=== PATIENT | male | born 1955 ===

== ENCOUNTER 2024-11-04 05:34 | Day surgery (SDC) | payer OTHER ==
[2024-11-02 09:00] LABS: HEMATOCRIT 43.2 % (39.0-48.0); HEMOGLOBIN 14.8 g/dL (13-16.00); MEAN CELL VOLUME 92.2 fL (80.0-100.00); MEAN CORPUSCULAR HEMOGLOBIN 31.5 pg (27.00-32.0); MEAN CORPUSCULAR HGB CONC 34.1 g/dl (32.0-36.0); PLATELET COUNT 276 K/uL (150-450); RED BLOOD COUNT 4.69 M/uL (4.00-6.00); RED CELL DISTRIBUTION WIDTH 13.7 % (11.5-14.5)
[2024-11-02 09:11] VITALS: BP 465/81
[2024-11-02 09:24] LABS: INR 1.09; PARTIAL THROMBOPLASTIN TIME 26.8 SECONDS (22.0-34.0); PROTHROMBIN TIME 11.8 SECONDS (9.0-11.5)
[2024-11-02 09:33] LABS: URINE APPEARANCE Clear; URINE BILIRRUBIN Negative (NEGATIVE); URINE BLOOD Negative; URINE COLOR Yellow; URINE GLUCOSE Negative (NEGATIVE); URINE KETONE Negative (NEGATIVE); URINE LEUKOCYTE Negative; URINE NITRATE Negative; URINE PROTEIN Trace (NEGATIVE)
[2024-11-02 09:36] LABS: URINE RBC 16.4 uL (0.0-20.8)
[2024-11-02 09:40] LABS: URINE BACTERIA 0 uL (0.0-1933); URINE EPITHELIAL CELLS 0.4 uL (0.0-38.8); URINE WBC 0.4 uL (0.0-23.2)
[2024-11-02 09:55] LABS: ALBUMIN 3.9 gm/dL (3.4-5.0); BILIRUBIN TOTAL 0.68 mg/dL (0.3-1.2); CALCIUM 9.7 mg/dL (8.5-10.1); CREATININE SERUM 1.1 mg/dL (0.70-1.30); GFR 66.77; GLOBULINA 3.1 G/DL (2.4-3.5); POTASSIUM 4.19 mEq/L (3.5-5.1)
[~2024-11-04] VITALS: Ht 175.3 cm; Wt 80.7 kg
[~2024-11-04 05:34] MED LIST: ASA81 MG PO; BRILINTA60 MG PO; CARVEDILOL6.25 MG; DIOVAN160 M1 PO; ISOSORBIDE MONO60 MG PO; LIPITOR20 MG; METFORMIN HCL500 M3 PO; TAMS0.4C PO
[2024-11-04] MEDS ORDERED: CEFAZOLIN SODIUM 1,000 MG VIAL ONE (07:01)
[2024-11-04] MEDS ORDERED: KETOROLAC TROMETHAMINE 30 MG VIAL ONE (07:35)
[2024-11-04] MEDS ORDERED: BUPIVACAINE HCL/MPF 0.5% 30ML VIAL ONE (07:35)
[2024-11-04] MEDS ORDERED: LIDOCAINE HCL 1%/EPINEPHRINE 20ML VIAL IJ ONE (07:36)
[2024-11-04] MEDS ORDERED: MORPHINE SULFATE 4 MG/ML VIAL IV ONE (09:25)
[2024-11-04] MEDS ORDERED: DIPHENHYDRAMINE HCL 50 MG/ML VIAL 1ML ONE (10:43)
[2024-11-04] MEDS ORDERED: DEXAMETHASONE SODIUM PHOSP/PF 10 MG/ML VIAL ONE (10:43)
[2024-11-04] MEDS ORDERED: DEXAMETHASONE SODIUM PHOSP/PF 10 MG/ML VIAL IV ONE (10:50)
[2024-11-04] MEDS ORDERED: DIPHENHYDRAMINE HCL 50 MG/ML VIAL 1ML IV ONE (10:50)
== END 2024-11-04 12:30 | disposition home or self-care (01) ==
LOC: CIR.AMB 05:34
PROVIDERS: ATTEND Orthopaedic Surgery
DX: M75.122 Complete rotator cuff tear or rupture of left shoulder, not specified as traumatic (principal); M19.012 Primary osteoarthritis, left shoulder; Z88.8 Allergy status to other drugs, medicaments and biological substances; I10 Essential (primary) hypertension; E78.5 Hyperlipidemia, unspecified; M19.90 Unspecified osteoarthritis, unspecified site